=== PATIENT | male | born 1930 | race Caucasian/White ===

== ENCOUNTER 2016-09-21 02:03 | Inpatient (IN) | payer BC, OTHER ==
[2016-09-21] VITALS (14 sets, daily range): BP systolic 91–120; BP diastolic 48–71; PULSE 99–109; TEMP 35.7–37.6; O2SAT 91–100; Ht 167.6 cm; Wt 74.1 kg
[~2016-09-21] VITALS: Ht 167.6 cm; Wt 74.1 kg
[~2016-09-21 02:03] MED LIST: BICA50TA6 PO; CHOL100027 PO; DENOINJ SC; LEUP30IN3 IM; LISI-461 PO; MULTTAB58 PO; PROB500T8 PO; SIMV20TA2 PO; TRAM-10 PO
[2016-09-21] MEDS ORDERED: SODIUM CHLORIDE 0.9% 1000ML 1,000 ML IV STA ×2 (02:25)
[2016-09-21] MEDS ORDERED: PANTOprazole INJ 80 MG in DEXTROSE 5% 100ML IV SCH (02:45)
--- NOTE | 2016-09-21 02:54 | EMERGENCY ROOM VISIT NOTE ---
History Report prepared by Sadie: Andrea Ceballos Under the Supervision of: Dr. Norm Gutierrez D.O. First contact with patient: 02:06 Stated Complaint: ALTERED MENTAL STATUS, TARRY STOOLS History of Present Illness The patient is a 86 year old male who presents to the Emergency Room by EMS with complaints of intermittent episodes of "tarry" stool beginning today. EMS states that the patient's caregiver reports that the patient had increased confusion today as well. The patient denies any pain. The patient's caregiver states that the patient has not been eating or drinking well lately. She states that the patient was recently diagnosed with metastasized prostate cancer. She states that the cancer has only metastasized to his hip and thigh areas. The patient is on Xarelto. HPI limited secondary to altered mental status. Source of History: patient, EMS History Limited By: AMS Onset: Today Quality: other ("tarry" stools) Timing: intermittent Associated Symptoms: No abdominal pain, No neck pain Review of Systems See HPI for pertinent positives and negatives. A total of ten systems were reviewed and were otherwise negative. Past Medical & Surgical Medical Problems: (1) Altered mental status (2) Anemia (3) ARF (acute renal failure) (4) Chronic Kidney Disease, Stage Iv (Severe) (5) GI bleed (6) Hyperlipidemia (7) Hypertension Nos (8) MGUS (monoclonal gammopathy of unknown significance) (9) Prostate cancer (10) Pulmonary infiltrate (11) Sepsis (12) UTI (urinary tract infection) (13) UTI (urinary tract infection) (14) Weakness Family History Patient reports no known family medical history. Social History Smoking Status: Never Smoker Drug Use: none Marital Status: Housing Status: lives with significant other Occupation Status: retired Current/Historical Medications Scheduled Bicalutamide (Casodex), 50 MG PO DAILY Cholecalciferol (Vitamin D 1000 Unit), 1,000 INTER.UNIT PO QAM Denosumab (Xgeva), 120 MG SC MONTHLY Leuprolide Acetate (Lupron Depot), 30 MG IM Q3MO Lisinopril (Zestril), 20 MG PO QAM Multiple Vitamin (Multivitamin), 1 TAB PO QAM Probenecid (Benemid), 500 MG PO AMHS Rivaroxaban (Xarelto), 20 MG PO HS Simvastatin (Zocor), 20 MG PO HS Tramadol (Ultram), 50 MG PO HS Allergies Coded Allergies: No Known Allergies (Verified , 09/21/16) Physical Exam Vital Signs Date Time Temp Pulse Resp B/P Pulse Ox O2 Delivery O2 Flow Rate FiO2 09/21/16 03:00 103 19 127/52 99 Room Air 09/21/16 02:40 100 Room Air 09/21/16 02:40 35.1 117 16 107/66 100 Room Air 09/21/16 02:30 99 Room Air 09/21/16 02:15 94 Physical Exam GENERAL: Awake, alert, well-appearing, in no distress HENT: Normocephalic, atraumatic. Oropharynx unremarkable. EYES: Normal conjunctiva. Sclera non-icteric. NECK: Supple. No nuchal rigidity. FROM. No JVD. RESPIRATORY: Clear to auscultation. CARDIAC: Regular rate, normal rhythm. Extremities warm and well perfused. Pulses equal. ABDOMEN: Soft, non-distended. No tenderness to palpation. No rebound or guarding. No masses. RECTAL: Black stool which is heme positive. MUSCULOSKELETAL: Chest examination reveals no tenderness. The back is symmetrical on inspection without obvious abnormality. There is no CVA tenderness to palpation. No joint edema. LOWER EXTREMITIES: Calves are equal size bilaterally and non-tender. No edema. No discoloration. NEURO: Altered mental status. SKIN: Skin is pale. No rash or jaundice noted. Medical Decision & Procedures ER Provider Diagnostic Interpretation: One View Chest X-ray interpreted by me: increased perihelia. No obvious effusion. No lower lobe infiltrates. Laboratory Results 09/21/16 02:52 Red Blood Count 2.69, Mean Corpuscular Volume 102.2, Mean Corpuscular Hemoglobin 34.9, Mean Corpuscular Hemoglobin Concent 34.2, Mean Platelet Volume 10.5, Neutrophils (%) (Auto) 86.2, Lymphocytes (%) (Auto) 9.6, Monocytes (%) ( Auto) 3.6, Eosinophils (%) (Auto) 0.1, Basophils (%) (Auto) 0.0, Neutrophils # ( Auto) 8.24, Lymphocytes # (Auto) 0.92, Monocytes # (Auto) 0.34, Eosinophils # ( Auto) 0.01, Basophils # (Auto) 0.00 09/21/16 03:20 Test 09/21/16 02:20 09/21/16 02:52 09/21/16 03:20 Urine Color DK YELLOW Urine Appearance CLEAR (CLEAR) Urine pH 5.0 (4.5-7.5) Urine Specific [place] 1.013 (1.000-1.030) Urine Protein NEG (NEG) Urine Glucose (UA) NEG (NEG) Urine Ketones NEG (NEG) Urine Occult Blood 2+ (NEG) Urine Nitrite NEG (NEG) Urine Bilirubin NEG (NEG) Urine Urobilinogen NEG (NEG) Urine Leukocyte Esterase TRACE (NEG) Urine WBC (Auto) 1-5 /hpf (0-5) Urine RBC (Auto) 10-30 /hpf (0-4) Urine Hyaline Casts (Auto) 5-10 /lpf (0-5) Urine Epithelial Cells (Auto) 20-30 /lpf (0-5) Urine Bacteria (Auto) NEG (NEG) White Blood Count 9.56 K/uL (4.8-10.8) Red Blood Count 2.69 M/uL (4.7-6.1) Hemoglobin 9.4 g/dL (14.0-18.0) Hematocrit 27.5 % (42-52) Mean Corpuscular Volume 102.2 fL (80-100) Mean Corpuscular Hemoglobin 34.9 pg (25-34) Mean Corpuscular Hemoglobin Concent 34.2 g/dl (32-36) Platelet Count 343 K/uL (130-400) Mean Platelet Volume 10.5 fL (7.4-10.4) Neutrophils (%) (Auto) 86.2 % Lymphocytes (%) (Auto) 9.6 % Monocytes (%) (Auto) 3.6 % Eosinophils (%) (Auto) 0.1 % Basophils (%) (Auto) 0.0 % Neutrophils # (Auto) 8.24 K/uL (1.4-6.5) Lymphocytes # (Auto) 0.92 K/uL (1.2-3.4) Monocytes # (Auto) 0.34 K/uL (0.11-0.59) Eosinophils # (Auto) 0.01 K/uL (0-0.5) Basophils # (Auto) 0.00 K/uL (0-0.2) RDW Standard Deviation 58.4 fL (36.4-46.3) RDW Coefficient of Variation 15.5 % (11.5-14.5) Immature Granulocyte % (Auto) 0.5 % Immature Granulocyte # (Auto) 0.05 K/uL (0.00-0.02) Echinocytes 2+ Prothrombin Time 12.8 SECONDS (9.0-12.0) Prothromb Time International Ratio 1.2 (0.9-1.1) Activated Partial Thromboplast Time 30.2 SECONDS (21.0-31.0) Partial Thromboplastin Ratio 1.2 Anion Gap 16.0 mmol/L (3-11) Estimated GFR () 19.7 Estimated GFR (Non- 17.0 BUN/Creatinine Ratio 37.3 (10-20) Calcium Level 7.3 mg/dl (8.5-10.1) Total Bilirubin 0.2 mg/dl (0.2-1) Direct Bilirubin < 0.1 mg/dl (0-0.2) Aspartate Amino Transf (AST/SGOT) 13 U/L (15-37) Alanine Aminotransferase (ALT/SGPT) 13 U/L (12-78) Alkaline Phosphatase 48 U/L (45-117) Total Protein 5.7 gm/dl (6.4-8.2) Albumin 2.7 gm/dl (3.4-5.0) Lipase 152 U/L (73-393) Laboratory results reviewed by me Medications Administered Medications (Trade) Dose Ordered Sig/Kirstin Route Start Time Stop Time Status Last Admin Dose Admin Sodium Chloride 1,000 ml @ 999 mls/hr Q1H1M STAT IV 09/21/16 02:25 09/21/16 03:25 DC 09/21/16 02:54 999 MLS/HR Sodium Chloride 1,000 ml @ 999 mls/hr Q1H1M STAT IV 09/21/16 02:25 09/21/16 03:25 DC 09/21/16 03:30 999 MLS/HR Pantoprazole Sodium 80 mg/ Dextrose 120 ml @ 480 mls/hr 0245 IV 09/21/16 02:45 09/21/16 02:59 DC 09/21/16 02:54 480 MLS/HR Pantoprazole Sodium/Dextrose (Protonix Inj/D5 100ml) 100 ml @ 20 mls/hr Q5H IV 09/21/16 03:00 09/21/16 07:59 09/21/16 03:47 20 MLS/HR Morphine Sulfate (MoRPHine SULFATE INJ) 4 mg NOW STAT IV 09/21/16 03:35 09/21/16 03:37 DC 09/21/16 03:48 4 MG Ondansetron HCl (Zofran Inj) 4 mg NOW STAT IV 09/21/16 03:35 09/21/16 03:37 DC 09/21/16 03:48 4 MG ECG Indication: altered mental status Rate (beats per minute): 117 Rhythm: sinus tachycardia Findings: RBBB (incomplete), no acute ischemic change ED Course 0210: The patient was evaluated in room B9. A complete history and physical exam was performed. 0216: I spoke with the patients daughter over the phone. She is the patients power of collections attorney and states that the patient is DNR and do not intubate. She states that the patient is able to get IV fluids and blood. 0225: Ordered Sodium Chloride 1000 ml @ 999 mls/hr IV, Protonix IV Bolus/Drop IV , Sodium Chloride 1000 ml @ 999 mls/hr IV. 0245: Ordered Pantoprazole Sodium 80 mg/Dextrose 120 mL @ 480 mL/hr IV. 0300: Ordered Pantoprazole Sodium 40 mg/Dextrose 100 mL @ 20 mL/hr IV. 0335: Nursing staff informed me that the patient is complaining of vague pain. They believe the pain to be in the patient's hip area. Ordered Zofran Inj 4 mg IV, Morphine Sulfate 4 mg IV. 0425: Upon reexamination, the patient was resting comfortably in no distress. I discussed the test results and treatment plan with the patient's caregiver. The patient will be evaluated for further management. Medical Decision Differential diagnoses include but are not limited to; sepsis, GI bleed, dehydration, and UTI. Consults Time Called: [phone] Consulting Physician: Dr. Delta IBARRA Returned Call: [phone] Discussed the patient's case. The patient will be evaluated for further treatment and disposition. Impression Primary Impression: Altered mental status Additional Impressions: GI bleed Metabolic encephalopathy Uremia Critical Care Critical care time is 35 minutes for this patient. Multiple re-evaluations discussion with family on the telephone discussion with hospitalist discussion with caregiver at bedside. Scribe Attestation The scribe's documentation has been prepared under my direction and personally reviewed by me in its entirety. I confirm that the note above accurately reflects all work, treatment, procedures, and medical decision making performed by me. Departure Information Dispostion Being Evaluated By Hospitalist Rasta Cornejo M.D. (PCP) Problem Qualifiers Primary Impression: Altered mental status Altered mental status type: delirium Qualified Codes: R41.0 - Disorientation , unspecified Additional Impressions: GI bleed GI bleed type/associated pathology: unspecified gastrointestinal hemorrhage type Qualified Codes: K92.2 - Gastrointestinal hemorrhage, unspecified
[2016-09-21] MEDS ORDERED: PANTOprazole INJ 40 MG in DEXTROSE 5% 100ML IV SCH (03:00)
[2016-09-21 03:05] LABS: HEMATOCRIT 27.5 % (42-52); MEAN CELL VOLUME 102.2 fL (80-100); MEAN CORPUSCULAR HEMOGLOBIN 34.9 pg (25-34); MEAN CORPUSCULAR HGB CONC 34.2 g/dl (32-36); MEAN PLATELET VOLUME 10.5 fL (7.4-10.4); PLATELET COUNT 343 K/uL (130-400); RED BLOOD COUNT 2.69 M/uL (4.7-6.1); WHITE BLOOD COUNT 9.56 K/uL (4.8-10.8)
[2016-09-21 03:12] LABS: URINE APPEARANCE CLEAR (CLEAR); URINE BILIRUBIN NEG (NEG); URINE COLOR DK YELLOW; URINE EPITHELIAL CELL AUTO 20-30 /lpf (0-5); URINE NITRITE NEG (NEG); URINE SPECIFIC GRAVITY 1.013 (1.000-1.030); UROBILINOGEN NEG (NEG)
[2016-09-21 03:18] LABS: MANUAL MICROSCOPIC REQUIRED? NO; REVIEW REQ? NO
[2016-09-21 03:21] LABS: COMPLETE YES; ECHINOCYTES 2+; EOS % 0.1 %; IG% 0.5 %; LYMPH % 9.6 %; LYMPH ABS # 0.92 K/uL (1.2-3.4); MONO % 3.6 %; NEUT % 86.2 %
[2016-09-21] MEDS ORDERED: ONDANSETRON INJ 2 MG/ML 2 ML VIAL IV STA (03:35)
[2016-09-21] MEDS ORDERED: MoRPHine SULFATE 4 MG/ML 1 ML CARP\\VIAL IV STA (03:35)
[2016-09-21 03:42] LABS: INR 1.2 (0.9-1.1); PARTIAL THROMBOPLASTIN RATIO 1.2; PROTHROMBIN TIME (PATIENT) 12.8 SECONDS (9.0-12.0)
[2016-09-21 03:52] LABS: ALT/SGPT 13 U/L (12-78); AST/SGOT 13 U/L (15-37); BLOOD UREA NITROGEN 116 mg/dl (7-18); BUN/CREATININE RATIO 37.3 (10-20); CALCIUM 7.3 mg/dl (8.5-10.1); CARBON DIOXIDE 11 mmol/L (21-32); CHLORIDE 111 mmol/L (98-107); GLUCOSE 126 mg/dl (70-99); POTASSIUM 5.1 mmol/L (3.5-5.1); SODIUM 138 mmol/L (136-145)
[2016-09-21 03:55] LABS: ALKALINE PHOSPHATASE 48 U/L (45-117)
[2016-09-21] MEDS ORDERED: LISI-725 PO (04:16)
[2016-09-21] MEDS ORDERED: RIVA1TAB4 PO (04:18)
[2016-09-21] MEDS ORDERED: ONDANSETRON INJ 2 MG/ML 2 ML VIAL IV PRN (04:30)
[2016-09-21] MEDS ORDERED: ACETAMINOPHEN 325 MG TAB PO PRN (04:30)
--- NOTE | 2016-09-21 06:20 | History and Physical ---
History & Physical Date & Time of Service: Sep 21, 2016 at 06:08 Chief Complaint: Altered Mental Status, Tarry Stools Primary Care Physician: Rasta Reyes M.D. History of Present Illness Source: patient 86 y/o M w/Hx advanced dementia, metastatic prostate CA, CKD IV, femoral DVT on Xarelto. He is brought in at the behest of a home care and home health aides teacher. She reports that he has been refusing PO intake for 4-5 days. Tonight she noted that he had black, tarry diarrhea and brought him in primarily for this reason. He is unable to contribute to the HPI. On arrival it is noted that he is mildly hypothermic and borderline hypotensive although there is no evidence of sepsis. Initial labs confirm anemia which is new and acute on chronic renal failure with a markedly elevated BUN supporting an upper GI bleed. Pts daughter was contacted and has confirmed that the pt is a DNR status however transfusions and fluids are acceptable. Past Medical/Surgical History Medical Problems: (1) Altered mental status Status: Resolved (2) Anemia Status: Chronic (3) Chronic Kidney Disease, Stage Iv (Severe) Status: Chronic (4) Hyperlipidemia Status: Chronic (5) Hypertension Nos Status: Chronic (6) MGUS (monoclonal gammopathy of unknown significance) Status: Chronic (7) Prostate cancer - with bone mets Status: Chronic (8) Pulmonary infiltrate Status: Resolved (9) Sepsis Status: Resolved (10) UTI (urinary tract infection) Status: Resolved (11) UTI (urinary tract infection) Status: Resolved (12) Weakness Status: Resolved 13) DVT - L femoral - 02/23 Family History Patient reports no known family medical history. Cannot obtain Social History Smoking Status: Never Smoker Drug Use: none Marital Status: Housing status: lives with family Occupational Status: retired Immunizations History of Influenza Vaccine: Yes History of Tetanus Vaccine?: utd History of Pneumococcal: Yes Pneumococcal Date: Mar 27, 2012 History of Hepatitis B Vaccine: Unknown Multi-Drug Resistant Organisms History of MDRO: No Allergies Coded Allergies: No Known Allergies (Verified , 09/21/16) Home Medications Scheduled Bicalutamide (Casodex), 50 MG PO DAILY Cholecalciferol (Vitamin D 1000 Unit), 1,000 INTER.UNIT PO QAM Denosumab (Xgeva), 120 MG SC MONTHLY Leuprolide Acetate (Lupron Depot), 30 MG IM Q3MO Lisinopril (Zestril), 20 MG PO QAM Multiple Vitamin (Multivitamin), 1 TAB PO QAM Probenecid (Benemid), 500 MG PO AMHS Rivaroxaban (Xarelto), 20 MG PO HS Simvastatin (Zocor), 20 MG PO HS Tramadol (Ultram), 50 MG PO HS Review of Systems Cannot obtain from this pt Physical Exam Vital Signs Date Time Temp Pulse Resp B/P Pulse Ox O2 Delivery O2 Flow Rate FiO2 09/21/16 05:21 35.6 108 16 117/54 99 Room Air 09/21/16 05:00 99 20 87/50 95 Room Air 09/21/16 04:00 100 24 85/56 95 Room Air 09/21/16 03:00 103 19 127/52 99 Room Air 09/21/16 02:40 100 Room Air 09/21/16 02:40 35.1 117 16 107/66 100 Room Air 09/21/16 02:30 99 Room Air 09/21/16 02:15 94 General Appearance: + pertinent finding (Somnolent elderly male - no overt distress - appears pale) Head: normocephalic, atraumatic Eyes: normal inspection ENT: normal ENT inspection, + pertinent finding (could not examine oral cavity) Neck: supple, no JVD Respiratory/Chest: chest non-tender, + pertinent finding (limited exam - could not cooperate - no audible wheezing) Cardiovascular: regular rate, rhythm, no edema, no gallop Abdomen/GI: normal bowel sounds, non tender, soft Back: no CVA tenderness Extremities/Musculoskelatal: normal inspection, no calf tenderness, normal capillary refill Neurologic/Psych: + pertinent finding (Somnolent - moves all extrems - does not cooperate with exam) Skin: + pertinent finding (Palor - no rashes) Diagnostics Laboratory Results Results Past 24 Hours Test 09/21/16 02:20 09/21/16 02:52 09/21/16 03:20 Range/Units Urine Color DK YELLOW Urine Appearance CLEAR CLEAR Urine pH 5.0 4.5-7.5 Urine Specific [place] 1.013 1.000-1.030 Urine Protein NEG NEG Urine Glucose (UA) NEG NEG Urine Ketones NEG NEG Urine Occult Blood 2+ NEG Urine Nitrite NEG NEG Urine Bilirubin NEG NEG Urine Urobilinogen NEG NEG Urine Leukocyte Esterase TRACE NEG Urine WBC (Auto) 1-5 0-5 /hpf Urine RBC (Auto) 10-30 0-4 /hpf Urine Hyaline Casts (Auto) 5-10 0-5 /lpf Urine Epithelial Cells (Auto) 20-30 0-5 /lpf Urine Bacteria (Auto) NEG NEG White Blood Count 9.56 4.8-10.8 K/uL Red Blood Count 2.69 4.7-6.1 M/uL Hemoglobin 9.4 14.0-18.0 g/dL Hematocrit 27.5 42-52 % Mean Corpuscular Volume 102.2 80-100 fL Mean Corpuscular Hemoglobin 34.9 25-34 pg Mean Corpuscular Hemoglobin Concent 34.2 32-36 g/dl Platelet Count 343 130-400 K/uL Mean Platelet Volume 10.5 7.4-10.4 fL Neutrophils (%) (Auto) 86.2 % Lymphocytes (%) (Auto) 9.6 % Monocytes (%) (Auto) 3.6 % Eosinophils (%) (Auto) 0.1 % Basophils (%) (Auto) 0.0 % Neutrophils # (Auto) 8.24 1.4-6.5 K/uL Lymphocytes # (Auto) 0.92 1.2-3.4 K/uL Monocytes # (Auto) 0.34 0.11-0.59 K/uL Eosinophils # (Auto) 0.01 0-0.5 K/uL Basophils # (Auto) 0.00 0-0.2 K/uL RDW Standard Deviation 58.4 36.4-46.3 fL RDW Coefficient of Variation 15.5 11.5-14.5 % Immature Granulocyte % (Auto) 0.5 % Immature Granulocyte # (Auto) 0.05 0.00-0.02 K/uL Echinocytes 2+ Prothrombin Time 12.8 9.0-12.0 SECONDS Prothromb Time International Ratio 1.2 0.9-1.1 Activated Partial Thromboplast Time 30.2 21.0-31.0 SECONDS Partial Thromboplastin Ratio 1.2 Sodium Level 138 136-145 mmol/L Potassium Level 5.1 3.5-5.1 mmol/L Chloride Level 111 98-107 mmol/L Carbon Dioxide Level 11 21-32 mmol/L Anion Gap 16.0 3-11 mmol/L Blood Urea Nitrogen 116 7-18 mg/dl Creatinine 3.10 0.60-1.40 mg/dl Estimated GFR () 19.7 Estimated GFR (Non- 17.0 BUN/Creatinine Ratio 37.3 10-20 Random Glucose 126 70-99 mg/dl Calcium Level 7.3 8.5-10.1 mg/dl Total Bilirubin 0.2 0.2-1 mg/dl Direct Bilirubin < 0.1 0-0.2 mg/dl Aspartate Amino Transf (AST/SGOT) 13 15-37 U/L Alanine Aminotransferase (ALT/SGPT) 13 12-78 U/L Alkaline Phosphatase 48 45-117 U/L Total Protein 5.7 6.4-8.2 gm/dl Albumin 2.7 3.4-5.0 gm/dl Lipase 152 73-393 U/L Microbiology Results 09/21/16 Blood Culture, Received Pending 09/21/16 Blood Culture, Received Pending EKG Sinus - RBBB - compromised by artifact - no clear change Impression Assessment and Plan 86 y/o M w/Hx advanced dementia, metastatic prostate CA, CKD IV, femoral DVT on Xarelto. He is brought in at the behest of a home care and home health aides teacher. She reports that he has been refusing PO intake for 4-5 days. Tonight she noted that he had black, tarry diarrhea and brought him in primarily for this reason. He is unable to contribute to the HPI. On arrival it is noted that he is mildly hypothermic and borderline hypotensive although there is no evidence of sepsis. Initial labs confirm anemia which is new and acute on chronic renal failure with a markedly elevated BUN supporting an upper GI bleed. Pts daughter was contacted and has confirmed that the pt is a DNR status however transfusions and fluids are acceptable. 1) Anemia - GI bleed - suspect upper - Protonix GTT, serial Hb - transfuse 1 unit due to borderline hypotension - Xarelto held - pt will be monitored on telemetry - GI consult requested.- NPO and all meds held at present as he may need EGD - would discuss with daughter prior due to his functional status. 2) ARF - Likely prerenal with contribution from bleed raising BUN - IVF provided - repeat labs pending, Lisinopril held. 3) Femoral DVT - may be worth reevaluating to determine if Xarelto can be D/Cd for an extended period or if pt should be considered for a filter. 4) Metastatic prostate CA - receives hormonal therapy - held while NPO DNR/DNI - OK to give meds/fluids/blood SCDs Total time for this admit including review of labs, meds, EKG, records - discussion with caregiver and ER attending - 33 min Level of Care Telemetry Resuscitation Status DO NOT RESUSCITATE VTE Prophylaxis VTE Risk Assessment Done? Y/N: Yes Risk Level: High Given or contraindicated: SCD's
--- NOTE | 2016-09-21 06:27 | DIAGNOSTIC IMAGING REPORT ---
CHEST ONE VIEW PORTABLE CLINICAL HISTORY: ams dyspnea COMPARISON STUDY: 05/28/2016 FINDINGS: Mild cardiomegaly. Tortuous thoracic aorta. Diaphragms smooth. Minimal basilar atelectasis. Lungs otherwise appear clear. IMPRESSION: Minimal basilar atelectasis. Otherwise negative study Electronically signed by: Sabino Stevens M.D. 09/21/2016 6:26 AM Dictated Date/Time: 09/21/2016 6:22 AM
[2016-09-21] MEDS: PANTOprazole INJ 40 MG in DEXTROSE 5% 100ML IV SCH ×4 (08:15→23:11)
[2016-09-21] MEDS ORDERED: MoRPHine SULFATE 4 MG/ML 1 ML CARP\\VIAL ONE (09:57)
[2016-09-21] MEDS ORDERED: NURSING VERBAL MED ORDER ONE (10:00)
[2016-09-21] MEDS: D5W AND NSS 1,000 ML IV SCH ×2 (11:07→14:13)
--- NOTE | 2016-09-21 11:28 | Gastrointestinal Consultation ---
Gastrointestinal Consultation Date of Consultation: Sep 21, 2016 Attending Physician: Nneka Knight Consulting Physician: Josiah Segovia Reason for Consultation: GI bleeding History of Present Illness Patient is a 86 year old male w hx of advanced dementia, metastatic prostate a, CKD IV, femoral DVT on Xarelto who was brought in to ED by his caregiver for AMS , tarry stools. He is demented, unable to provide hx. Caregiver (Maria Del Carmen) at bedside who reports that pt has been refusing PO food and fluid x 5 days. She noticed decreased UOP. He's been c/o leg and hip pain but this seems to be chronic secondary to cancer mets. Yesterday he was able to take in some milkshake w his meds. He was assisted to stand up and suddenly had dark tarry stools w mucus "pouring out" of his rectum. He hasn't c/o abd pain, n/v. Upon evaluation, his labs showed Hgb of 9.4, baseline 12. BUN/Cr elevated at 116/ 3.1. PT/INR 12.8/1.2. His Xarelto has been held. He's placed on PPI bolus and gtt. No more BMs since 1AM per caregiver. Past Medical/Surgical History Medical Problems: (1) Dehydration Status: Acute (2) Hip pain Status: Acute (3) Left femoral vein DVT Status: Acute (4) Metabolic encephalopathy Status: Acute (5) Peripheral arterial disease Status: Acute (6) Prostate cancer, primary, with metastasis from prostate to other site Status: Acute (7) Uremia Status: Acute Past Medical History: See above; MGUS, UTI Past Surgical History: None noted. Family History Patient reports no known family medical history. Social History Smoking Status: Never Smoker Drug Use: none Marital Status: Housing Status: lives with significant other Occupation Status: retired Allergies Coded Allergies: No Known Allergies (Verified , 09/21/16) Current Medications Home Meds and Scripts Medications Dose Route/Sig Max Daily Dose Days Date Category Xarelto (Rivaroxaban) 20 Mg Tab 20 Mg PO HS 09/21/16 Reported Zestril (Lisinopril) 20 Mg Tab 20 Mg PO QAM 09/21/16 Reported Benemid (Probenecid) 500 Mg Tab 500 Mg PO AMHS 08/14/14 Reported Ultram (Tramadol HCl) 50 Mg Tab 50 Mg PO HS 08/14/14 Reported Casodex (Bicalutamide) 50 Mg Tab 50 Mg PO DAILY 06/25/14 Rx Xgeva (Denosumab) 120 Mg/1.7 Ml Inj 120 Mg SC MONTHLY 07/26/13 Reported Multivitamin (Multiple Vitamin) 1 Tab Tab 1 Tab PO QAM 01/27/13 Reported Lupron Depot (Leuprolide Acetate) 30 Mg Kit 30 Mg IM Q3MO 01/27/13 Reported Zocor (Simvastatin) 20 Mg Tab 20 Mg PO HS 03/24/12 Reported Vitamin D 1000 Unit (Cholecalciferol) 1,000 Unit Cap 1,000 Inter.unit PO QAM 03/24/12 Reported Review of Systems Constitutional: + see HPI (Unable to obtain due to dementia) Physical Exam Date Time Temp Pulse Resp B/P Pulse Ox O2 Delivery O2 Flow Rate FiO2 09/21/16 10:30 36.8 109 16 93/60 97 Room Air 09/21/16 07:38 35.8 99 16 106/67 96 Room Air 09/21/16 06:21 35.7 99 22 111/61 100 Room Air 09/21/16 05:21 35.6 108 16 117/54 99 Room Air 09/21/16 05:00 99 20 87/50 95 Room Air 09/21/16 04:00 100 24 85/56 95 Room Air 09/21/16 03:00 103 19 127/52 99 Room Air 09/21/16 02:40 100 Room Air 09/21/16 02:40 35.1 117 16 107/66 100 Room Air 09/21/16 02:30 99 Room Air 09/21/16 02:15 94 General Appearance: + mild distress (groaning in pain when moved/turned) Respiratory/Chest: no respiratory distress, no accessory muscle use, + decreased breath sounds Cardiovascular: regular rate, rhythm, no gallop, no murmur Abdomen: non tender, soft, + abnormal bowel sounds (hypoactive) Extremities: no pedal edema Neurologic/Psych: + disoriented Skin: normal color, no jaundice, no rash Laboratory Results Last 24 Hours Test 09/21/16 02:20 09/21/16 02:52 09/21/16 03:20 09/21/16 09:30 Urine Color DK YELLOW Urine Appearance CLEAR Urine pH 5.0 Urine Specific [place] 1.013 Urine Protein NEG Urine Glucose (UA) NEG Urine Ketones NEG Urine Occult Blood 2+ Urine Nitrite NEG Urine Bilirubin NEG Urine Urobilinogen NEG Urine Leukocyte Esterase TRACE Urine WBC (Auto) 1-5 /hpf Urine RBC (Auto) 10-30 /hpf Urine Hyaline Casts (Auto) 5-10 /lpf Urine Epithelial Cells (Auto) 20-30 /lpf Urine Bacteria (Auto) NEG White Blood Count 9.56 K/uL Red Blood Count 2.69 M/uL Hemoglobin 9.4 g/dL 9.4 g/dL Hematocrit 27.5 % Mean Corpuscular Volume 102.2 fL Mean Corpuscular Hemoglobin 34.9 pg Mean Corpuscular Hemoglobin Concent 34.2 g/dl Platelet Count 343 K/uL Mean Platelet Volume 10.5 fL Neutrophils (%) (Auto) 86.2 % Lymphocytes (%) (Auto) 9.6 % Monocytes (%) (Auto) 3.6 % Eosinophils (%) (Auto) 0.1 % Basophils (%) (Auto) 0.0 % Neutrophils # (Auto) 8.24 K/uL Lymphocytes # (Auto) 0.92 K/uL Monocytes # (Auto) 0.34 K/uL Eosinophils # (Auto) 0.01 K/uL Basophils # (Auto) 0.00 K/uL RDW Standard Deviation 58.4 fL RDW Coefficient of Variation 15.5 % Immature Granulocyte % (Auto) 0.5 % Immature Granulocyte # (Auto) 0.05 K/uL Echinocytes 2+ Prothrombin Time 12.8 SECONDS Prothromb Time International Ratio 1.2 Activated Partial Thromboplast Time 30.2 SECONDS Partial Thromboplastin Ratio 1.2 Sodium Level 138 mmol/L Potassium Level 5.1 mmol/L Chloride Level 111 mmol/L Carbon Dioxide Level 11 mmol/L Anion Gap 16.0 mmol/L Blood Urea Nitrogen 116 mg/dl Creatinine 3.10 mg/dl Estimated GFR () 19.7 Estimated GFR (Non- 17.0 BUN/Creatinine Ratio 37.3 Random Glucose 126 mg/dl Calcium Level 7.3 mg/dl Total Bilirubin 0.2 mg/dl Direct Bilirubin < 0.1 mg/dl Aspartate Amino Transf (AST/SGOT) 13 U/L Alanine Aminotransferase (ALT/SGPT) 13 U/L Alkaline Phosphatase 48 U/L Total Protein 5.7 gm/dl Albumin 2.7 gm/dl Lipase 152 U/L Impression Patient is a 86 year old male w dementia, admitted w anemia and acute kidney failure. Caregiver reported dark tarry stools yesterday and poor PO intake for several days. He's been on Xarelto for DVTs. Hgb around 9 (baseline 12). No more signs of GI bleeding since 1AM. Plan - Discussed w pt's daughter (Deann) who is also pt's POA about pt's current medical condition. She mentioned that her father had it on his Living Will to be made DNR and doesn't wish for any procedures including endoscopic evaluation. Thus will defer EGD eval at this time. Continue Protonix gtt x 2 days then switch to twice daily oral PPI, monitor H/H and transfuse prn. - If pt able to tolerate PO intake, may try starting CL diet Attg addendum: I reviewed chart and labs, examined pt, attempted interview. Pt with adv dementia (at baseline, needs assistance with toileting, minimal assistance with feeds, not oriented to place/time at baseline), also met prostate Ca, on Xarelto (for DVT?) admit with 3 days of dark tarry stool and refusal to eat. Mildly hyotens on admission, Hgb 8-9 from apparent baseline of 12, and BUn markedly increased. No further evidence of bleeding since admission. Labs also show a markedly low bicarb. Endoscopy may be higher risk given age, anesthesia, anticoagulation, acidosis. As above, POA wishes to defer endoscopy. Will treat empirically with PPI as above. Transfuse for Hgb < 8. Clears today, adv diet as tolerated. Plan to hold Xarelto due to GIB - please let me know if there is a plan to resume, but would hold at least 1 week. Will sign off. Work up of mixed acidosis per primary service. Please call with questions,
[2016-09-21 12:49] LABS: BUN/CREATININE RATIO 37.4 (10-20); CALCIUM 7.6 mg/dl (8.5-10.1); CREATININE 2.8 mg/dl (0.60-1.40); MAGNESIUM 1.7 mg/dl (1.8-2.4); POTASSIUM 5.1 mmol/L (3.5-5.1)
--- NOTE | 2016-09-21 13:27 | Progress Note ---
Subjective Date of Service: Sep 21, 2016. Subjective Pt evaluation today including: conversation w/ patient, conversation w/ family , physical exam, chart review, lab review, review of studies, conversation w/ small business consultant, review of inpatient medication list Spoke with daughter at length re: plan of care, living will, and chronic medical conditions. Patient is admitted with presumed UGIB manifesting as dark, tarry stools. However, living will does state and daughter confirms that patient does not want any invasive procedures. Spoke with GI [employer] who recommended that we continue protonix ggt along with supportive care including blood transfusion. Called by RN due to bicarb of 9 on bmp. Will obtain ABG and start him on d5 1/2 nss + 75 meq of bicarb until ABG is back. Repeat bmp later in the afternoon to re-assess. Patient's Xarelto has been stopped. He was on it for a femoral DVT most likely since February 2016 ( ~7 months). Problem List Medical Problems: (1) Dehydration Status: Acute (2) Hip pain Status: Acute (3) Left femoral vein DVT Status: Acute (4) Metabolic encephalopathy Status: Acute (5) Peripheral arterial disease Status: Acute (6) Prostate cancer, primary, with metastasis from prostate to other site Status: Acute (7) Uremia Status: Acute Medications Acetaminophen (Tylenol Tab) 650 mg Q4H PRN PO; Start 09/21/16 at 04:30; Stop 10/21/16 at 04:29 Dextrose/Sodium Chloride 1,000 ml @ 100 mls/hr Q10H IV Last administered on 11:07; Admin Dose 100 MLS/HR; Start 09/21/16 at 04:45; Stop 09/22/16 at 00:44 Morphine Sulfate (MoRPHine SULFATE INJ) 2 mg Q4H PRN IV; Start 09/21/16 at 10: 15; Stop 10/05/16 at 10:14 Morphine Sulfate 4 mg 4 mg Q4H PRN IV Last administered on 09/21/16 14:14; Admin Dose 4 MG; Start 09/21/16 at 10:15; Stop 10/05/16 at 10:14 Ondansetron HCl 4 mg 4 mg Q6H PRN IV; Start 09/21/16 at 04:30; Stop 10/21/16 at 04:29 Pantoprazole Sodium/Dextrose (Protonix Inj/D5 100ml) 100 ml @ 20 mls/hr Q5H IV Last administered on 09/21/16 13:08; Admin Dose 20 MLS/HR; Start 09/21/16 at 08 :00; Stop 10/21/16 at 07:59 Sodium Bicarbonate/ Dextrose/Sodium Chloride (Sodium Bicarbonate 8.4% Inj/D5W And 1/ 2nss) 1,075 ml @ 100 mls/hr [id number] IV Last administered on 09/21/16 14 :12; Admin Dose 100 MLS/HR; Start 09/21/16 at 13:45; Stop 10/21/16 at 13:44 Objective Vital Signs Date Time Temp Pulse Resp B/P Pulse Ox O2 Delivery O2 Flow Rate FiO2 09/21/16 11:55 36.3 105 16 98/62 94 Room Air 09/21/16 10:30 36.8 109 16 93/60 97 Room Air 09/21/16 08:00 96 Room Air 09/21/16 07:38 35.8 99 16 106/67 96 Room Air 09/21/16 06:21 35.7 99 22 111/61 100 Room Air 09/21/16 05:21 35.6 108 16 117/54 99 Room Air 09/21/16 05:00 99 20 87/50 95 Room Air 09/21/16 04:00 100 24 85/56 95 Room Air 09/21/16 03:00 103 19 127/52 99 Room Air 09/21/16 02:40 100 Room Air 09/21/16 02:40 35.1 117 16 107/66 100 Room Air 09/21/16 02:30 99 Room Air 09/21/16 02:15 94 Physical Exam Comments: sleeping, snoring arousable with verbal stimulus diminished breath sounds, no rhonchi, no wheezing abd soft nt +BS + awad in place Laboratory Results Last 24 Hours Test 09/21/16 02:20 09/21/16 02:52 09/21/16 03:20 09/21/16 09:30 Urine Color DK YELLOW Urine Appearance CLEAR Urine pH 5.0 Urine Specific [place] 1.013 Urine Protein NEG Urine Glucose (UA) NEG Urine Ketones NEG Urine Occult Blood 2+ Urine Nitrite NEG Urine Bilirubin NEG Urine Urobilinogen NEG Urine Leukocyte Esterase TRACE Urine WBC (Auto) 1-5 /hpf Urine RBC (Auto) 10-30 /hpf Urine Hyaline Casts (Auto) 5-10 /lpf Urine Epithelial Cells (Auto) 20-30 /lpf Urine Bacteria (Auto) NEG White Blood Count 9.56 K/uL Red Blood Count 2.69 M/uL Hemoglobin 9.4 g/dL 9.4 g/dL Hematocrit 27.5 % Mean Corpuscular Volume 102.2 fL Mean Corpuscular Hemoglobin 34.9 pg Mean Corpuscular Hemoglobin Concent 34.2 g/dl Platelet Count 343 K/uL Mean Platelet Volume 10.5 fL Neutrophils (%) (Auto) 86.2 % Lymphocytes (%) (Auto) 9.6 % Monocytes (%) (Auto) 3.6 % Eosinophils (%) (Auto) 0.1 % Basophils (%) (Auto) 0.0 % Neutrophils # (Auto) 8.24 K/uL Lymphocytes # (Auto) 0.92 K/uL Monocytes # (Auto) 0.34 K/uL Eosinophils # (Auto) 0.01 K/uL Basophils # (Auto) 0.00 K/uL RDW Standard Deviation 58.4 fL RDW Coefficient of Variation 15.5 % Immature Granulocyte % (Auto) 0.5 % Immature Granulocyte # (Auto) 0.05 K/uL Echinocytes 2+ Prothrombin Time 12.8 SECONDS Prothromb Time International Ratio 1.2 Activated Partial Thromboplast Time 30.2 SECONDS Partial Thromboplastin Ratio 1.2 Sodium Level 138 mmol/L Potassium Level 5.1 mmol/L Chloride Level 111 mmol/L Carbon Dioxide Level 11 mmol/L Anion Gap 16.0 mmol/L Blood Urea Nitrogen 116 mg/dl Creatinine 3.10 mg/dl Estimated GFR () 19.7 Estimated GFR (Non- 17.0 BUN/Creatinine Ratio 37.3 Random Glucose 126 mg/dl Calcium Level 7.3 mg/dl Total Bilirubin 0.2 mg/dl Direct Bilirubin < 0.1 mg/dl Aspartate Amino Transf (AST/SGOT) 13 U/L Alanine Aminotransferase (ALT/SGPT) 13 U/L Alkaline Phosphatase 48 U/L Total Protein 5.7 gm/dl Albumin 2.7 gm/dl Lipase 152 U/L Test 09/21/16 12:01 09/21/16 12:05 09/21/16 13:06 Hemoglobin 8.9 g/dL Sodium Level 137 mmol/L Potassium Level 5.1 mmol/L Chloride Level 112 mmol/L Carbon Dioxide Level 9 mmol/L Anion Gap 17.0 mmol/L Blood Urea Nitrogen 105 mg/dl Creatinine 2.80 mg/dl Est Creatinine Clear Calc Drug Dose 16.4 ml/min Estimated GFR () 22.3 Estimated GFR (Non- 19.3 BUN/Creatinine Ratio 37.4 Random Glucose 121 mg/dl Calcium Level 7.6 mg/dl Phosphorus Level 5.0 mg/dl Magnesium Level 1.7 mg/dl Assessment and Plan H&P noted 1. Melena - 2/2 UGIB - cont ppi ggt, stop xarelto - keep npo for now - no further BM per RN - transfuse one unit prbc now 2. Low bicarb - ABG reviewed, appears to be mostly AG and NAG metabolic acidosis + some respiratory acidosis - will cont bicarb drip for now and recheck bmp in the afternoon - no lactic acidosis - may be from renal failure 3. VIDYA on CKDIIIa - likely from volume loss + autoregulatory failure from acei + some hypotension - will replete with prbc + IVF - hold lisinopril for now - maintain MAP>65, or BP>100 systolic
[2016-09-21 13:48] LABS: ARTERIAL BLD GAS O2 SATURATION 92.9 % (90-95); ARTERIAL BLOOD GAS BASE EXCESS -17.4 mEq/L (-9-1.8); ARTERIAL BLOOD GAS HCO3 10 mmol/L (19-24); ARTERIAL BLOOD GAS PO2 84 mm/Hg (80-95)
[2016-09-21 13:56] LABS: ALLEN TEST POS (POS); O2 ADMINISTRATION ROOM AIR
[2016-09-21 13:57] LABS: ARTERIAL BLOOD GAS pH 7.13 (7.35-7.45)
[2016-09-21] MEDS: SODIUM BICARBONATE 8.4% INJ 75 MEQ in D5W AND 1/2NSS 1,000 ML IV SCH (14:12)
[2016-09-21] MEDS: MoRPHine SULFATE 4 MG/ML 1 ML CARP\\VIAL IV PRN (14:14)
[2016-09-21 17:25] LABS: BUN/CREATININE RATIO 36.5 (10-20); CALCIUM 7.6 mg/dl (8.5-10.1); CREATININE 2.7 mg/dl (0.60-1.40); POTASSIUM 5.4 mmol/L (3.5-5.1)
[2016-09-21 22:43] LABS: BUN/CREATININE RATIO 35.3 (10-20); CALCIUM 7.8 mg/dl (8.5-10.1); CREATININE 2.7 mg/dl (0.60-1.40)
[2016-09-22] VITALS (11 sets, daily range): BP systolic 91–148; BP diastolic 54–73; PULSE 80–101; TEMP 36.3–37.2; O2SAT 92–100
[2016-09-22] MEDS: MoRPHine SULFATE 2 MG/ML CARP IV PRN ×4 (00:05→20:17)
[2016-09-22] MEDS: SODIUM BICARBONATE 8.4% INJ 75 MEQ in D5W AND 1/2NSS 1,000 ML IV SCH ×2 (00:17→10:29)
[2016-09-22 04:09] LABS: EOS % 0.2 %; HEMATOCRIT 25.8 % (42-52); IG% 0.3 %; LYMPH % 13.1 %; LYMPH ABS # 0.82 K/uL (1.2-3.4); MEAN CELL VOLUME 97.7 fL (80-100); MEAN CORPUSCULAR HEMOGLOBIN 33.3 pg (25-34); MEAN CORPUSCULAR HGB CONC 34.1 g/dl (32-36); MEAN PLATELET VOLUME 9.5 fL (7.4-10.4); MONO % 9.4 %; PLATELET COUNT 237 K/uL (130-400); RED BLOOD COUNT 2.64 M/uL (4.7-6.1); WHITE BLOOD COUNT 6.26 K/uL (4.8-10.8)
[2016-09-22] MEDS: PANTOprazole INJ 40 MG in DEXTROSE 5% 100ML IV SCH ×4 (04:11→19:00)
[2016-09-22 04:30] LABS: BUN/CREATININE RATIO 36.3 (10-20); CALCIUM 7.3 mg/dl (8.5-10.1); CREATININE 2.4 mg/dl (0.60-1.40); POTASSIUM 4.5 mmol/L (3.5-5.1)
[2016-09-22 07:26] LABS: COMPLETE YES
--- NOTE | 2016-09-22 09:10 | Clinical Documentation Query ---
QUERY 1 OF [address] RALPH, In your clinical opinion is this patient being managed for: ( X ) GI bleed (possibly) due to anticoagulant therapy ( ) Other explanation of clinical findings (Please Explain) ( ) Unable to determine (Please Define) ( ) Need to Discuss ( ) Not Agree The medical record reflects the following clinical findings, treatment, and risk factors. Clinical Indicators: 86 yo male presenting with black tarry stools. Hgb 9.4, Hct 27.5 (baseline documented by GI indicates Hgb 12) Treatment: transfuse 1 I PRBC, GI consult, IV protonix bolus and gtt, hold xarelto, serial CBC's/Hgb's Risk Factors: age, Xarelto tx for femoral DVT QUERY 2 OF 3 In your clinical opinion is this patient being managed for: ( X ) Metabolic encephalopathy ( ) Other explanation of clinical findings (Please Explain) ( ) Unable to determine (Please Define) ( ) Need to Discuss ( ) Not Agree The medical record reflects the following clinical findings, treatment, and risk factors. Clinical Indicators: Pt reported with increased confusion with known hx of dementia. BUN 116, Cr 3.10, ABG 7.13/, bicarb 9. Baseline orientation-- needs assistance with toileting, minimal assistance with feeds, not oriented to place/time. Now noted by RN to be responding to touch only which causes pt to yell out and moan. Treatment: IV fluids with bicarb, monitor BMP/CBC's, transfuse PRBC, O2 support Risk Factors: VIDYA, GI bleed, metabolic and respiratory acidosis, known dementia QUERY 3 OF 3 In your clinical opinion is this patient being managed for: (X ) Secondary malignant neoplasm of bone ( ) Other explanation of clinical findings (Please Explain) ( ) Unable to determine (Please Define) ( ) Need to Discuss ( ) Not Agree The medical record reflects the following clinical findings, treatment, and risk factors. Clinical Indicators: Per ER notation, pt with metastasized prostate cancer to hip and thigh. Review of historical CT scan (2013) showed extensive blastic metastatic disease to bone. Treatment: Pain management Risk Factors: metastatic prostate cancer Please clarify and document your clinical opinion in the progress notes and discharge summary. Terms such as "probable", "suspected", "likely", "questionable", "possible", or "still to be ruled out" are acceptable. IF IN AGREEMENT, YOU MUST DOCUMENT ABOVE DIAGNOSTIC STATEMENT IN DAILY PROGRESS NOTES AND DISCHARGE SUMMARY. This document is not part of the patient's record. Thank You, Valeri Vaughan RN [phone]
--- NOTE | 2016-09-22 11:56 | Progress Note ---
Subjective Date of Service: Sep 22, 2016. Subjective Pt evaluation today including: conversation w/ patient, physical exam, lab review, review of studies, review of inpatient medication list Patient mental status waxes and wanes. Was just given morphine prior to examination. Per RN and bedside caregiver, he was at baseline prior to the medication. Problem List Medical Problems: (1) Dehydration Status: Acute (2) Hip pain Status: Acute (3) Left femoral vein DVT Status: Acute (4) Metabolic encephalopathy Status: Acute (5) Peripheral arterial disease Status: Acute (6) Prostate cancer, primary, with metastasis from prostate to other site Status: Acute (7) Uremia Status: Acute Review of Systems unable to obtain Medications Acetaminophen (Tylenol Tab) 650 mg Q4H PRN PO; Start 09/21/16 at 04:30; Stop 10/21/16 at 04:29 Morphine Sulfate (MoRPHine SULFATE INJ) 2 mg Q4H PRN IV Last administered on 10:29; Admin Dose 2 MG; Start 09/21/16 at 10:15; Stop 10/05/16 at 10:14 Morphine Sulfate 4 mg 4 mg Q4H PRN IV Last administered on 09/21/16 14:14; Admin Dose 4 MG; Start 09/21/16 at 10:15; Stop 10/05/16 at 10:14 Ondansetron HCl 4 mg 4 mg Q6H PRN IV; Start 09/21/16 at 04:30; Stop 10/21/16 at 04:29 Pantoprazole Sodium/Dextrose (Protonix Inj/D5 100ml) 100 ml @ 20 mls/hr Q5H IV Last administered on 09/22/16 14:26; Admin Dose 20 MLS/HR; Start 09/21/16 at 08 :00; Stop 10/21/16 at 07:59 Sodium Bicarbonate/ Dextrose (Sodium Bicarbonate 8.4% Inj/D5W 1000ml) 1,075 ml @ 80 mls/hr [id number] IV Last administered on 09/22/16 14:21; Admin Dose 80 MLS/ HR; Start 09/22/16 at 14:00; Stop 10/22/16 at 11:59 Objective Vital Signs Date Time Temp Pulse Resp B/P Pulse Ox O2 Delivery O2 Flow Rate FiO2 09/22/16 10:55 36.3 91 20 107/65 98 Nasal Cannula 2.0 09/22/16 08:00 100 Nasal Cannula 2.0 09/22/16 07:08 37.1 89 20 121/71 99 Nasal Cannula 2.0 09/22/16 05:51 85 113/66 09/22/16 04:00 100 Nasal Cannula 2.0 09/22/16 04:00 37.2 101 91/54 100 Nasal Cannula 2.0 09/22/16 00:00 92 Nasal Cannula 2.0 09/21/16 23:06 37.6 99 23 91/48 92 Nasal Cannula 2.0 09/21/16 20:00 Nasal Cannula 2.0 09/21/16 19:58 36.5 109 20 114/51 98 Nasal Cannula 2.0 09/21/16 16:00 97 Room Air 2.0 09/21/16 16:00 100 09/21/16 14:47 36.3 107 20 120/71 97 2.0 09/21/16 14:33 36.4 107 20 118/71 97 2.0 09/21/16 14:16 36.1 107 20 119/70 98 2.0 09/21/16 14:00 36.3 108 20 117/54 91 09/21/16 13:36 36.5 108 20 110/65 95 09/21/16 12:00 93 Room Air Physical Exam Comments: no acute cardiorespiratory distress, appears somnolent s1 s2 rrr, no murmurs appreciated basilar rhonchi b/l, no wheezing abd soft nt/nd +BS no LE edema Laboratory Results Last 24 Hours Test 09/21/16 12:01 09/21/16 12:05 09/21/16 12:07 09/21/16 13:35 Hemoglobin 8.9 g/dL Sodium Level 137 mmol/L Potassium Level 5.1 mmol/L Chloride Level 112 mmol/L Carbon Dioxide Level 9 mmol/L Anion Gap 17.0 mmol/L Blood Urea Nitrogen 105 mg/dl Creatinine 2.80 mg/dl Est Creatinine Clear Calc Drug Dose 16.4 ml/min Estimated GFR () 22.3 Estimated GFR (Non- 19.3 BUN/Creatinine Ratio 37.4 Random Glucose 121 mg/dl Calcium Level 7.6 mg/dl Phosphorus Level 5.0 mg/dl Magnesium Level 1.7 mg/dl Bedside Glucose 129 mg/dl Arterial Blood pH 7.13 Arterial Blood Partial Pressure CO2 31 mmHg Arterial Blood Partial Pressure O2 84 mm/Hg Arterial Blood HCO3 10 mmol/L Arterial Blood Oxygen Saturation 92.9 % Arterial Blood Base Excess -17.4 mEq/L Arterial Blood Gas Delivery ROOM AIR Par[place] Test POS Lactic Acid Level 0.4 mmol/L Test 09/21/16 16:05 09/21/16 16:54 09/21/16 18:10 09/21/16 19:50 Bedside Glucose 188 mg/dl 218 mg/dl Sodium Level 138 mmol/L Potassium Level 5.4 mmol/L Chloride Level 113 mmol/L Carbon Dioxide Level 12 mmol/L Anion Gap 13.0 mmol/L Blood Urea Nitrogen 99 mg/dl Creatinine 2.70 mg/dl Est Creatinine Clear Calc Drug Dose 17.1 ml/min Estimated GFR () 23.3 Estimated GFR (Non- 20.1 BUN/Creatinine Ratio 36.5 Random Glucose 202 mg/dl Calcium Level 7.6 mg/dl Hemoglobin 10.6 g/dL Test 09/21/16 22:08 09/22/16 04:00 Sodium Level 138 mmol/L 141 mmol/L Potassium Level 5.0 mmol/L 4.5 mmol/L Chloride Level 113 mmol/L 115 mmol/L Carbon Dioxide Level 14 mmol/L 16 mmol/L Anion Gap 11.0 mmol/L 10.0 mmol/L Blood Urea Nitrogen 95 mg/dl 87 mg/dl Creatinine 2.70 mg/dl 2.40 mg/dl Est Creatinine Clear Calc Drug Dose 17.1 ml/min 19.2 ml/min Estimated GFR () 23.3 26.9 Estimated GFR (Non- 20.1 23.2 BUN/Creatinine Ratio 35.3 36.3 Random Glucose 184 mg/dl 146 mg/dl Calcium Level 7.8 mg/dl 7.3 mg/dl White Blood Count 6.26 K/uL Red Blood Count 2.64 M/uL Hemoglobin 8.8 g/dL Hematocrit 25.8 % Mean Corpuscular Volume 97.7 fL Mean Corpuscular Hemoglobin 33.3 pg Mean Corpuscular Hemoglobin Concent 34.1 g/dl Platelet Count 237 K/uL Mean Platelet Volume 9.5 fL Neutrophils (%) (Auto) 77.0 % Lymphocytes (%) (Auto) 13.1 % Monocytes (%) (Auto) 9.4 % Eosinophils (%) (Auto) 0.2 % Basophils (%) (Auto) 0.0 % Neutrophils # (Auto) 4.82 K/uL Lymphocytes # (Auto) 0.82 K/uL Monocytes # (Auto) 0.59 K/uL Eosinophils # (Auto) 0.01 K/uL Basophils # (Auto) 0.00 K/uL RDW Standard Deviation 58.1 fL RDW Coefficient of Variation 16.3 % Immature Granulocyte % (Auto) 0.3 % Immature Granulocyte # (Auto) 0.02 K/uL Red Blood Cell Morphology Unremarkable Assessment and Plan 1. Melena - 2/2 UGIB - cont ppi ggt, stop xarelto - no further BM per RN - s/p 1u prbc - cont to trend, however, intermittently refuses blood draws 2. Low bicarb - improved with bicarb drip - will switch to d5w with 75 meq bicarb at lower rate of 80 - monitor labs 3. VIDYA on CKDIIIa - likely from volume loss + autoregulatory failure from acei + some hypotension - will replete with prbc + IVF - hold lisinopril for now - maintain MAP>65, or BP>100 systolic - improved with volume repletion 4. Metastatic prostate ca - s/p lupron 2 days ago - on casodex at home, holding for now - also known to have lumbar spine and brain mets - DNR with conservative management
[2016-09-22] MEDS: SODIUM BICARBONATE 8.4% INJ 75 MEQ in DEXTROSE 5% 1000ML 1,000 ML IV SCH (14:21)
[2016-09-22] MEDS: MoRPHine SULFATE 4 MG/ML 1 ML CARP\\VIAL IV PRN (16:48)
[2016-09-22 17:07] LABS: HEMATOCRIT 27.5 % (42-52)
[2016-09-23] VITALS (8 sets, daily range): BP systolic 114–129; BP diastolic 53–78; PULSE 79–103; TEMP 36.3–36.8; O2SAT 91–100
[2016-09-23] MEDS: MoRPHine SULFATE 4 MG/ML 1 ML CARP\\VIAL IV PRN (00:04)
[2016-09-23] MEDS: SODIUM BICARBONATE 8.4% INJ 75 MEQ in DEXTROSE 5% 1000ML 1,000 ML IV SCH (00:05)
[2016-09-23] MEDS: PANTOprazole INJ 40 MG in DEXTROSE 5% 100ML IV SCH ×5 (00:07→13:04)
[2016-09-23 08:45] LABS: HEMATOCRIT 27.8 % (42-52)
[2016-09-23 09:20] LABS: BUN/CREATININE RATIO 32.5 (10-20); CALCIUM 8.2 mg/dl (8.5-10.1); CREATININE 1.3 mg/dl (0.60-1.40)
--- NOTE | 2016-09-23 09:52 | Progress Note ---
Subjective Date of Service: Sep 23, 2016. Subjective Pt evaluation today including: conversation w/ patient, physical exam, lab review, review of studies, review of inpatient medication list According to caregiver from home, patient has been on Xarelto since earlier this year, either end of Jun or July. She also says that his mental status is basically at baseline but he does seem to be resting more comfortably. His mental status at baseline is waxing and waning with periods of confusion, period of aggressive behavior, sometimes restless. He is currently resting comfortably in bed. Problem List Medical Problems: (1) Dehydration Status: Acute (2) Hip pain Status: Acute (3) Left femoral vein DVT Status: Acute (4) Metabolic encephalopathy Status: Acute (5) Peripheral arterial disease Status: Acute (6) Prostate cancer, primary, with metastasis from prostate to other site Status: Acute (7) Uremia Status: Acute Review of Systems All Other Systems: Reviewed and Negative Medications Acetaminophen (Tylenol Tab) 650 mg Q4H PRN PO; Start 09/21/16 at 04:30; Stop 10/21/16 at 04:29 Morphine Sulfate (MoRPHine SULFATE INJ) 1 mg Q4H PRN IV; Start 09/23/16 at 10: 15; Stop 10/07/16 at 10:14 Morphine Sulfate (MoRPHine SULFATE INJ) 2 mg Q4H PRN IV; Start 09/23/16 at 10: 15; Stop 10/07/16 at 10:14 Ondansetron HCl 4 mg 4 mg Q6H PRN IV; Start 09/21/16 at 04:30; Stop 10/21/16 at 04:29 Pantoprazole Sodium 40 mg/ Dextrose 100 ml @ 20 mls/hr Q5H IV Last administered on 09/23/16 08:41; Admin Dose 20 MLS/HR; Start 09/21/16 at 08:00; Stop 10/21/16 at 07:59 Potassium Chloride/Dextrose/ Sod Cl (D5W And 1/4nss + 20meq KCl) 1,000 ml @ 60 mls/hr [id number] IV Last administered on 09/23/16 10:44; Admin Dose 60 MLS/HR; Start 09/23/16 at 10:30; Stop 10/23/16 at 10:29 Objective Vital Signs Date Time Temp Pulse Resp B/P Pulse Ox O2 Delivery O2 Flow Rate FiO2 09/23/16 08:00 Nasal Cannula 2.0 09/23/16 07:26 36.4 96 20 115/64 99 Nasal Cannula 2.0 09/23/16 04:10 36.3 79 19 114/60 100 Nasal Cannula 2.0 09/23/16 04:00 Nasal Cannula 2.0 09/23/16 00:11 36.8 103 20 129/76 99 Nasal Cannula 2.0 09/22/16 23:59 Nasal Cannula 2.0 09/22/16 20:40 36.8 83 18 114/70 100 Nasal Cannula 2.0 09/22/16 20:26 36.6 80 18 134/64 93 Nasal Cannula 2.0 09/22/16 20:00 100 Nasal Cannula 2.0 09/22/16 16:26 37.0 99 20 148/73 100 Nasal Cannula 2.0 09/22/16 16:00 98 Nasal Cannula 2.0 09/22/16 12:00 Nasal Cannula 2.0 09/22/16 10:55 36.3 91 20 107/65 98 Nasal Cannula 2.0 Physical Exam Comments: nad, asleep and in no acute cardiorespiratory distress anicteric s1 s2 rrr rhonchi bilaterally, no wheezing, right base rales abd soft nd +BS no LE edema Laboratory Results Last 24 Hours Test 09/22/16 16:12 09/22/16 17:00 09/22/16 20:19 09/23/16 08:22 Bedside Glucose 132 mg/dl 133 mg/dl Hemoglobin 9.4 g/dL 9.5 g/dL Hematocrit 27.5 % 27.8 % Sodium Level 144 mmol/L Potassium Level 4.0 mmol/L Chloride Level 110 mmol/L Carbon Dioxide Level 26 mmol/L Anion Gap 8.0 mmol/L Blood Urea Nitrogen 42 mg/dl Creatinine 1.30 mg/dl Est Creatinine Clear Calc Drug Dose 35.4 ml/min Estimated GFR () 56.5 Estimated GFR (Non- 48.7 BUN/Creatinine Ratio 32.5 Random Glucose 137 mg/dl Calcium Level 8.2 mg/dl Assessment and Plan 1. Melena - 2/2 UGIB with anticoagulation on board - cont ppi ggt, stop xarelto - no further BM per RN - H&H stable - will transition ppi drip to oral ppi protonix 40 mg BID - stop Xarelto as he is high risk for anticoagulation 2. Acid-base disturbance likely from VIDYA/CKD - s/p bicarb infusion with good results - will now switch back to d5 1/4 NSS as his serum Na is on the higher side and decrease rate to 60/hr 3. VIDYA on CKDIIIa - likely from volume loss + autoregulatory failure from acei + some hypotension - resolved and now back to baseline 1.1-1.4 - s/p prbc + IVF - hold lisinopril for now - maintain MAP>65, or BP>100 systolic 4. Metastatic prostate ca - s/p lupron the day prior to admission - on casodex at home, holding for now - also known to have lumbar spine and brain mets - DNR with conservative management
[2016-09-23] MEDS ORDERED: MoRPHine SULFATE 2 MG/ML CARP IV PRN ×2 (10:15)
[2016-09-23] MEDS: D5W AND 1/4NSS + 20MEQ KCL 1,000 ML IV SCH (10:44)
[2016-09-23] MEDS: PANTOprazole SOD 40 MG TAB PO SCH (18:51)
[2016-09-24] MEDS: D5W AND 1/4NSS + 20MEQ KCL 1,000 ML IV SCH (03:52)
[2016-09-24 07:19] VITALS: BP 159/97; PULSE 90; TEMP 36.7; O2SAT 98
[2016-09-24 07:37] LABS: COMPLETE YES; EOS % 0.8 %; HEMATOCRIT 28.1 % (42-52); IG% 0.2 %; LYMPH % 15.4 %; LYMPH ABS # 0.93 K/uL (1.2-3.4); MEAN CELL VOLUME 95.9 fL (80-100); MEAN CORPUSCULAR HEMOGLOBIN 33.4 pg (25-34); MEAN CORPUSCULAR HGB CONC 34.9 g/dl (32-36); MONO % 11.5 %; NEUT % 72.1 %; PLATELET COUNT 261 K/uL (130-400); RED BLOOD COUNT 2.93 M/uL (4.7-6.1); WHITE BLOOD COUNT 6.02 K/uL (4.8-10.8)
[2016-09-24 08:08] LABS: BUN/CREATININE RATIO 24.6 (10-20); CALCIUM 8.6 mg/dl (8.5-10.1); CREATININE 0.98 mg/dl (0.60-1.40); MAGNESIUM 1.5 mg/dl (1.8-2.4); POTASSIUM 4.3 mmol/L (3.5-5.1)
--- NOTE | 2016-09-24 08:12 | Progress Note ---
Subjective Date of Service: Sep 24, 2016. Subjective Pt evaluation today including: conversation w/ patient, physical exam, review of studies, review of inpatient medication list Alert, answers some questions. Caregiver at bedside did say this is his baseline mental status He otherwise does not complain of anything. Problem List Medical Problems: (1) Dehydration Status: Acute (2) Hip pain Status: Acute (3) Left femoral vein DVT Status: Acute (4) Metabolic encephalopathy Status: Acute (5) Peripheral arterial disease Status: Acute (6) Prostate cancer, primary, with metastasis from prostate to other site Status: Acute (7) Uremia Status: Acute Review of Systems All Other Systems: Reviewed and Negative Medications Acetaminophen (Tylenol Tab) 650 mg Q4H PRN PO; Start 09/21/16 at 04:30; Stop 10/21/16 at 04:29 Ondansetron HCl 4 mg 4 mg Q6H PRN IV; Start 09/21/16 at 04:30; Stop 10/21/16 at 04:29 Oxycodone/ Acetaminophen (Percocet 5-325mg Tab) 1 tab Q4H PRN PO; Start at 08:30; Stop 10/08/16 at 08:29 Pantoprazole Sodium (Protonix Tab) 40 mg BID@0900,1800 PO Last administered on 09:22; Admin Dose 40 MG; Start 09/23/16 at 18:00; Stop 10/23/16 at 17: 59 Potassium Chloride/Dextrose/ Sod Cl (D5W And 1/4nss + 20meq KCl) 1,000 ml @ 60 mls/hr [id number] IV Last administered on 09/24/16 03:52; Admin Dose 60 MLS/HR; Start 09/23/16 at 10:30; Stop 10/23/16 at 10:29 Tramadol HCl (Ultram Tab) 50 mg Q4H PRN PO; Start 09/24/16 at 08:30; Stop 10/24 at 08:29 Objective Vital Signs Date Time Temp Pulse Resp B/P Pulse Ox O2 Delivery O2 Flow Rate FiO2 09/24/16 07:19 36.7 90 20 159/97 98 Nasal Cannula 2.0 09/24/16 00:00 Nasal Cannula 1.5 09/23/16 15:55 36.5 92 18 126/78 91 Nasal Cannula 1.5 09/23/16 15:50 Nasal Cannula 2.0 09/23/16 12:30 36.8 95 18 115/70 97 Nasal Cannula 2.0 09/23/16 12:30 Nasal Cannula 2.0 09/23/16 11:35 36.7 82 20 100 2.0 09/23/16 11:20 36.7 82 20 118/53 100 2.0 09/23/16 10:48 36.4 96 20 99 2.0 Physical Exam Comments: nad, mental status baseline (confused, dementia) s1 s2 rrr no murmurs appreciated ctab no w/r/r abd soft nt/nd +BS no LE edema Laboratory Results Last 24 Hours Test 09/23/16 08:22 09/24/16 06:30 Hemoglobin 9.5 g/dL 9.8 g/dL Hematocrit 27.8 % 28.1 % Sodium Level 144 mmol/L 142 mmol/L Potassium Level 4.0 mmol/L 4.3 mmol/L Chloride Level 110 mmol/L 108 mmol/L Carbon Dioxide Level 26 mmol/L 25 mmol/L Anion Gap 8.0 mmol/L 9.0 mmol/L Blood Urea Nitrogen 42 mg/dl 24 mg/dl Creatinine 1.30 mg/dl 0.98 mg/dl Est Creatinine Clear Calc Drug Dose 35.4 ml/min 47.0 ml/min Estimated GFR () 56.5 79.5 Estimated GFR (Non- 48.7 68.6 BUN/Creatinine Ratio 32.5 24.6 Random Glucose 137 mg/dl 115 mg/dl Calcium Level 8.2 mg/dl 8.6 mg/dl White Blood Count 6.02 K/uL Red Blood Count 2.93 M/uL Mean Corpuscular Volume 95.9 fL Mean Corpuscular Hemoglobin 33.4 pg Mean Corpuscular Hemoglobin Concent 34.9 g/dl Platelet Count 261 K/uL Mean Platelet Volume 10.0 fL Neutrophils (%) (Auto) 72.1 % Lymphocytes (%) (Auto) 15.4 % Monocytes (%) (Auto) 11.5 % Eosinophils (%) (Auto) 0.8 % Basophils (%) (Auto) 0.0 % Neutrophils # (Auto) 4.34 K/uL Lymphocytes # (Auto) 0.93 K/uL Monocytes # (Auto) 0.69 K/uL Eosinophils # (Auto) 0.05 K/uL Basophils # (Auto) 0.00 K/uL RDW Standard Deviation 55.9 fL RDW Coefficient of Variation 15.7 % Immature Granulocyte % (Auto) 0.2 % Immature Granulocyte # (Auto) 0.01 K/uL Magnesium Level 1.5 mg/dl Assessment and Plan 1. Melena - 2/2 UGIB with anticoagulation on board - cont ppi ggt, stop xarelto - no further BM per RN - H&H stable - no po protonix - stop Xarelto as he is high risk for anticoagulation 2. Acid-base disturbance likely from VIDYA/CKD - s/p bicarb infusion with good results - will stop IVF 3. VIDYA on CKDIIIa - likely from volume loss + autoregulatory failure from acei + some hypotension - resolved and now back to baseline 1.1-1.4 - s/p prbc + IVF - hold lisinopril for now - maintain MAP>65, or BP>100 systolic 4. Metastatic prostate ca - s/p lupron the day prior to admission - on casodex at home, holding for now - also known to have lumbar spine and brain mets - DNR with conservative management - Bedbound and will need frequent repositioning needing Tete lift for safety. - will discharge on percocet 5/325 mg q4h as needed for pain along with home tramadol 5. Nutrition - regular diet - stop IVF
[2016-09-24] MEDS ORDERED: OXYC-57 PO (08:24)
[2016-09-24] MEDS ORDERED: OXYCODONE/ACETAMINOPHEN 5-325 TAB PO PRN (08:30)
[2016-09-24] MEDS ORDERED: TRAMADOL HCL 50 MG TAB PO PRN (08:30)
[2016-09-24] MEDS: PANTOprazole SOD 40 MG TAB PO SCH ×2 (09:22→18:34)
[2016-09-24 15:39] VITALS: BP 150/83; PULSE 78; TEMP 36.7; O2SAT 99
--- NOTE | 2016-09-24 15:41 | Discharge Instructions ---
Discharge Instructions Date of Service Sep 24, 2016. Admission Reason for Admission: Arf, Gi Bleed Discharge Discharge Diagnosis / Problem: upper GI bleeding Discharge Goals Goal(s): Improve disease control Activity Recommendations Activity Limitations: resume your previous activity . Current Hospital Diet Patient's current hospital diet: Regular Diet Discharge Diet Recommended Diet: Regular Diet Procedures Procedures Performed: Speech Therapy Discharge Instructions 1. Regular diet 2. Aspiration precautions, Straws OK. Position upright for meals as tolerated. 3. Consider a Nutrition consult as appropriate to assess for need for supplements. Pending Studies Studies pending at discharge: no Medical Emergencies . Who to Call and When: Medical Emergencies: If at any time you feel your situation is an emergency, please call 911 immediately. . Non-Emergent Contact Non-Emergency issues call your: Primary Care Provider . . "Provider Documentation" section prepared by Nneka Knight. VTE Core Measure Inpt VTE Proph given/why not?: SCD's, Contraindicated
--- NOTE | 2016-09-24 15:42 | Discharge Summary ---
Discharge Summary Date of Service Sep 24, 2016. Discharge Summary Admission Date: Sep 21, 2016 at 04:37 Discharge Date: Sep 24, 2016 Discharge Disposition: Home with services Principal Diagnosis: upper GI bleeding Immunizations: Have You Had Influenza Vaccine: Yes History of Tetanus Vaccine?: utd History of Pneumococcal: Yes Pneumococcal Date: Mar 27, 2012 History of Hepatitis B Vaccine: Unknown Hospital Course 1. Melena - 2/2 UGIB with anticoagulation on board - cont ppi ggt, stop xarelto - no further BM per RN - H&H stable - will transition ppi drip to oral ppi protonix 40 mg BID - stop Xarelto as he is high risk for anticoagulation 2. Acid-base disturbance likely from VIDYA/CKD - s/p bicarb infusion with good results - will now switch back to d5 1/4 NSS as his serum Na is on the higher side and decrease rate to 60/hr 3. VIDYA on CKDIIIa - likely from volume loss + autoregulatory failure from acei + some hypotension - resolved and now back to baseline 1.1-1.4 - s/p prbc + IVF - hold lisinopril for now - maintain MAP>65, or BP>100 systolic 4. Metastatic prostate ca - s/p lupron the day prior to admission - on casodex at home, holding for now - also known to have lumbar spine and brain mets - DNR with conservative management - Bedbound and will need frequent repositioning needing Tete lift for safety. Total Time Spent: Greater than 30 minutes This includes examination of the patient, discharge planning, medication reconciliation, and communication with other providers. Discharge Instructions Please refer to the electronic Patient Visit Report (Discharge Instructions) for additional information. Additional Copies To Rasta Reyes M.D.
[2016-09-24] MEDS ORDERED: PRT40 PO (15:48)
[2016-09-24] MEDS ORDERED: LISINOPRIL 20 MG TAB PO ONE (16:30)
[2016-09-24 18:26] VITALS: BP 150/83; PULSE 78; TEMP 36.7; O2SAT 99
== END 2016-09-24 20:15 | disposition home health service (06) | DRG 813 ==
LOC: ENRESERVDT → ENRESERVTM → EDBD 02:03 → C.EDB 02:04 → C.2T 04:37 → C.4E 09-23 12:41
PROVIDERS: ADMIT Internal Medicine; ATTEND Internal Medicine
DX: D68.32 Hemorrhagic disorder due to extrinsic circulating anticoagulants (principal); G93.41 Metabolic encephalopathy; E87.4 Mixed disorder of acid-base balance; N18.4 Chronic kidney disease, stage 4 (severe); N17.9 Acute kidney failure, unspecified; C79.31 Secondary malignant neoplasm of brain; C79.51 Secondary malignant neoplasm of bone; K92.2 Gastrointestinal hemorrhage, unspecified; T45.515A Adverse effect of anticoagulants, initial encounter; D64.9 Anemia, unspecified; C61 Malignant neoplasm of prostate; F03.90 Unspecified dementia, unspecified severity, without behavioral disturbance, psychotic disturbance, mood disturbance, and anxiety; Z79.01 Long term (current) use of anticoagulants; Z79.899 Other long term (current) drug therapy; Z86.718 Personal history of other venous thrombosis and embolism; Z66 Do not resuscitate